=== PATIENT | female | born 1955 | race Caucasian/White ===

== ENCOUNTER → 2017-05-25 | Outpatient (CLI) | payer OTHER | LOC: MHCPAIN 15:12 | DX: G89.29 Other chronic pain (principal); M47.27 Other spondylosis with radiculopathy, lumbosacral region; M53.3 Sacrococcygeal disorders, not elsewhere classified; F17.290 Nicotine dependence, other tobacco product, uncomplicated | CPT/HCPCS: G0463 ==

== ENCOUNTER → 2018-06-05 | Outpatient (CLI) | payer OTHER | LOC: COL.RAD 10:05 | DX: Z02.71 Encounter for disability determination (principal); M41.86 Other forms of scoliosis, lumbar region ==